=== PATIENT | male | born 1960 | race Caucasian/White ===

== ENCOUNTER → 2020-08-14 | Outpatient (CLI) | payer MEDICARE, MEDICAID ==
[2020-08-14 15:37] LABS: MEAN CORP HGB 31.9 pg (26-34); RED CELL DISTRIBUTION WIDTH 13.1 % (11.5-14.5)
== END | disposition home or self-care (01) ==
LOC: NPLAB 10:23
PROVIDERS: ATTEND Psychiatry & Neurology Geriatric Psychiatry
DX: F02.81 Dementia in other diseases classified elsewhere, unspecified severity, with behavioral disturbance (principal); R68.89 Other general symptoms and signs; R25.9 Unspecified abnormal involuntary movements; G93.1 Anoxic brain damage, not elsewhere classified
CPT/HCPCS: 36415; 80164; 85027

== ENCOUNTER → 2020-09-20 | Outpatient (CLI) | payer MEDICARE, MEDICAID ==
[2020-09-20 15:13] LABS: MEAN CORP HGB 31.4 pg (26-34); RED CELL DISTRIBUTION WIDTH 12.4 % (11.5-14.5)
[2020-09-20 15:37] LABS: CALCIUM 8.8 mg/dL (8.4-10.5); CARBON DIOXIDE 24.9 mmol/L (20.0-32)
== END | disposition home or self-care (01) ==
LOC: NPLAB 14:00
PROVIDERS: ATTEND Family Medicine
DX: E78.5 Hyperlipidemia, unspecified (principal); M62.81 Muscle weakness (generalized); U07.1 COVID-19; F02.81 Dementia in other diseases classified elsewhere, unspecified severity, with behavioral disturbance; R25.9 Unspecified abnormal involuntary movements; F06.2 Psychotic disorder with delusions due to known physiological condition; R47.01 Aphasia; K71.6 Toxic liver disease with hepatitis, not elsewhere classified; R41.841 Cognitive communication deficit; F63.9 Impulse disorder, unspecified; F06.8 Other specified mental disorders due to known physiological condition
CPT/HCPCS: 36415; 80048; 80061; 80156; 80164; 82140; 84443; 85027

== ENCOUNTER → 2020-10-06 | Outpatient (CLI) | payer MEDICARE, MEDICAID | END | disposition home or self-care (01) | LOC: NPLAB 18:45 | PROVIDERS: ATTEND Family Medicine | DX: Z13.220 Encounter for screening for lipoid disorders (principal); Z51.81 Encounter for therapeutic drug level monitoring; E78.5 Hyperlipidemia, unspecified; G93.1 Anoxic brain damage, not elsewhere classified; K71.6 Toxic liver disease with hepatitis, not elsewhere classified; R68.89 Other general symptoms and signs | CPT/HCPCS: 80156; 82140 ==

== ENCOUNTER → 2021-07-02 | Outpatient (CLI) | payer MEDICARE, MEDICAID ==
[2021-07-02 12:43] LABS: MEAN CORP HGB 31.8 pg (26-34); RED CELL DISTRIBUTION WIDTH 12.5 % (11.5-14.5)
== END | disposition home or self-care (01) ==
LOC: NPLAB 11:52
PROVIDERS: ATTEND Psychiatry & Neurology Geriatric Psychiatry
DX: K71.6 Toxic liver disease with hepatitis, not elsewhere classified (principal)
CPT/HCPCS: 80164; 85027

== ENCOUNTER → 2023-01-18 | Outpatient (CLI) | payer MEDICARE, MEDICAID ==
[2023-01-18 08:22] LABS: MEAN CORP HGB 31.7 pg (26-34); RED CELL DISTRIBUTION WIDTH 12.2 % (11.5-14.5)
== END | disposition home or self-care (01) ==
LOC: NPLAB 07:47
PROVIDERS: ATTEND Family Medicine
DX: K71.6 Toxic liver disease with hepatitis, not elsewhere classified (principal); F06.2 Psychotic disorder with delusions due to known physiological condition
CPT/HCPCS: 36415; 80164; 85027